=== PATIENT | female | born 1995 | race African-American/Black ===

== ENCOUNTER 2020-09-11 07:56 | Emergency (ER) | payer OTHER, SELFPAY ==
--- NOTE | ~2020-09-11 | XR_ITS ---
EXAMINATION: XR chest 1V portable EXAM DATE: 09/11/2020 11:08 INDICATION: Chest pain. TECHNIQUE: Portable AP frontal chest x-ray was obtained. There is no prior study for comparison. FINDINGS: The lungs are clear. There are no pleural effusions. The cardiomediastinal silhouette is within normal limits. There is no pneumothorax suspected. The bones and soft tissues are unremarkab le. IMPRESSION: Normal chest x-ray exam. Reviewed, dictated and finalized at location B. IMPRESSION: Normal chest x-ray exam.
[2020-09-11 07:52] VITALS: BP 145/100; PULSE 84; RESP 17; TEMP 37; O2SAT 100
[2020-09-11 08:50] VITALS: BP 149/84; PULSE 73; RESP 22; O2SAT 100
[2020-09-11] MEDS: SODIUM CHLORIDE 0.9% IV 1,000 ML 999 ML IV CONT (09:35)
[2020-09-11] MEDS: FAMOTIDINE 20 MG/2 ML VIAL IV PUSH (09:36)
[2020-09-11] MEDS: ONDANSETRON INJ 4 MG/2 ML VIAL IV PUSH (09:39)
[2020-09-11 09:42] VITALS: BP 108/68; PULSE 72; RESP 16; O2SAT 100
--- NOTE | 2020-09-11 09:58 | ECG_ITS ---
Measurements Intervals [place] Rate: 58 P: 36 NV: 143 QRS: 52 QRSD: 74 T: 52 QT: 440 QTc: 433 Interpretive Statements SINUS BRADYCARDIA BORDERLINE T WAVE ABNORMALITY- ANTERIOR LEADS BASELINE ARTIFACT- I, V1-V2 BORDERLINE ECG Electronically Signed On 09-11-2020 10:31:28 CDT by Ilir York D.O.
--- NOTE | 2020-09-11 10:00 | PC.NURSE ---
Pt tearful and restless at this time. Reports burning sensation in head and chest. EDP Gomez notified.
[2020-09-11 10:37] VITALS: BP 114/63; PULSE 56; RESP 14; O2SAT 100
[2020-09-11] MEDS: LORazepam INJ (*CRX) 2 MG/ML VIAL 1 MG IV PUSH (10:59)
[2020-09-11 11:18] LABS: Add Urine Microscopic? YES; Appearance Urine Cloudy (Clear); Bacteria Urine Trace /hpf; Bilirubin Urine Negative (Negative); Blood Urine 1+ (Negative); Color Urine Yellow (Yellow); Glucose Urine UA Negative (Negative); Ketones Urine Negative (Negative); Leukocyte Esterase Ur 1+ LEU/UL (Negative); Nitrate Urine Negative (Negative); Protein Urine Negative (Negative); RBC Urine 0-2 /hpf (0-2); Specific Grav Ur 1.013 (1.001-1.035); Squamous Epithelial Cell Urine Many /hpf (Few)
[2020-09-11 11:29] LABS: Basophils Absolute Auto 0.1 K/mm3 (0.0-0.1); Basophils Percent Auto 1.3 % (0.2-1.2); Eosinophils Absolute Auto 0.1 K/mm3 (0-0.3); Eosinophils Percent Auto 0.8 % (0-4.4); Hematocrit 39.1 % (37.0-47.0); Hemoglobin 12.5 g/dL (12.0-15.0); Immature Granulocyte Absolute 0.02 K/mm3 (0.00-0.031); Immature Granulocyte Percent A 0.3 % (0-0.5); Lymphocytes Absolute Auto 1.74 K/mm3 (0.9-3.2); Lymphocytes Percent Auto 22.3 % (18.3-44.2); Mean Corpuscular Hemoglobin 28.3 pg (26-34); Mean Corpuscular Volume 88.5 fl (80-100); Mean Platelet Volume 9.2 fl (7.4-10.4); Monocytes Absolute Auto 0.6 K/mm3 (0.1-0.6); Monocytes Percent Auto 7.4 % (2.6-8.5); Neutrophils Absolute Auto 5.3 K/mm3 (1.3-6.7); Neutrophils Percent Auto 67.9 % (45.5-73.1); Platelet Count Result 313 k/mm3 (150-375); Red Blood Count 4.42 M/mm3 (4.2-5.4); Red Cell Distribution Width 12.3 % (11.5-14.5); White Blood Count 7.8 K/mm3 (4.5-10.0)
[2020-09-11 11:35] VITALS: BP 122/56; PULSE 57; RESP 18; O2SAT 99
[2020-09-11 11:39] LABS: INR 1.5; Partial Thromboplastin Time 29.8 SECONDS (22.3-36.8); Prothrombin Time 18.4 Seconds (11.1-14.7)
[2020-09-11 11:41] LABS: Anion Gap 5 mmol/L (8-16); Blood Urea Nitrogen 8 mg/dL (7-17); Calcium 8.4 mg/dL (8.4-10.2); Carbon Dioxide 21 mmol/L (22-30); Chloride 113 mmol/L (98-107); Estimated CRCL calculation 148 ml/min; Estimated Glomerular Filt Rate > 60; Glucose 74 mg/dL (65-105); Potassium 4.2 mmol/L (3.4-5.0); Sodium 139 mmol/L (137-145)
[2020-09-11 11:42] LABS: D Dimer 0.31 ug/mL (<0.48)
[2020-09-11 11:51] LABS: Troponin I < 0.012 ng/mL (0.000-0.034)
--- NOTE | 2020-09-11 12:06 | ED.GENADULT ---
HPI - General Adult General Chief complaint: Unspecified Stated complaint: reaction to covid vaccine Time Seen by Provider: 09/11/20 09:01 Source: patient and RN notes reviewed Mode of arrival: ambulatory Limitations: no limitations History of Present Illness HPI narrative: Patient is a 25-year-old female who received her second visor vaccine yesterday and is now having aching pain in the head chest and generalized went to work today and feels weak and nauseous. Patient felt fine prior to the vaccine patient also notes history of anxiety and on arrival appears very anxious Related Data Allergies Allergy/AdvReac Type Severity Reaction Status Date / Time No Known Allergies Allergy Verified 09/11/20 09:33 Review of Systems Review of Systems: All systems reviewed & are unremarkable except as noted in HPI and below PMFSH Past Medical History Medical History (Updated 09/11/20 @ 12:15 by Gallo Patterson PA-C) Anxiety Social History Social History Gender identity (if verbalized by the patient): Female Exam Narrative: Exam Narrative: GENERAL: Well-appearing, obese, and in no acute distress. HEAD: Normocephalic, atraumatic. EYES: PERRLA and EOMI. ENT: Nares clear, no rhinorrhea or epistaxis. Mucous membranes moist. CHEST: Clear to auscultation. No respiratory distress. No wheezes rales or rhonchi HEART: Regular rate and rhythm. No murmur heard. Normal peripheral pulses. ABDOMEN: Soft, nontender, nondistended EXTREMITIES: Normal range of motion. No edema. SKIN: Warm, dry, no rash. NEURO: No focal deficits. Alert and oriented x3. Cranial nerves II through XII grossly intact PSYCH: Patient acutely anxious Course Course Emergency Course: Patient in the room no distress aware of case findings treatment plan and diagnosis was reassured that the symptoms she is experiencing are consistent with vaccine reaction. No high risk changes in the blood work EKG or imaging. Patient is nontoxic-appearing no distress and felt appropriate for outpatient reevaluation ABCs and vital signs intact and stable Vital Signs Vital signs: Vital Signs Temperature 98.6 F 09/11/20 07:52 Pulse Rate 84 09/11/20 07:52 Respiratory Rate 17 09/11/20 07:52 Blood Pressure 145/100 H 09/11/20 07:52 Pulse Oximetry 100 09/11/20 07:52 Temperature 98.6 F 09/11/20 07:52 Pulse Rate 57 L 09/11/20 11:35 Respiratory Rate 18 09/11/20 11:35 Blood Pressure 122/56 L 09/11/20 11:35 Pulse Oximetry 99 09/11/20 11:35 Medical Decision Making MDM Narrative Medical decision making narrative: Patient in the room with likely vaccine reaction no distress no high risk changes in the imaging blood work felt appropriate for outpatient reevaluation Vital Signs Vital Signs: Vital Signs Temperature 98.6 F 09/11/20 07:52 Pulse Rate 84 09/11/20 07:52 Respiratory Rate 17 09/11/20 07:52 Blood Pressure 145/100 H 09/11/20 07:52 Pulse Oximetry 100 09/11/20 07:52 Temperature 98.6 F 09/11/20 07:52 Pulse Rate 57 L 09/11/20 11:35 Respiratory Rate 18 09/11/20 11:35 Blood Pressure 122/56 L 09/11/20 11:35 Pulse Oximetry 99 09/11/20 11:35 Lab Data Result diagrams: 09/11/20 11:24 09/11/20 11:24 Labs: Lab Results 09/11/20 09/11/20 09/11/20 Range/Units 11:01 11:24 11:24 WBC 7.8 (4.5-10.0) K/mm3 RBC 4.42 (4.2-5.4) M/mm3 Hgb 12.5 (12.0-15.0) g/dL Hct 39.1 (37.0-47.0) % MCV 88.5 (80-100) fl MCH 28.3 (26-34) pg MCHC 32.0 (32-36) g/dl RDW 12.3 (11.5-14.5) % Plt Count 313 (150-375) k/mm3 MPV 9.2 (7.4-10.4) fl Immature Gran % (Auto) 0.3 (0-0.5) % Neut % (Auto) 67.9 (45.5-73.1) % Lymph % (Auto) 22.3 (18.3-44.2) % Reynolds % (Auto) 7.4 (2.6-8.5) % Eos % (Auto) 0.8 (0-4.4) % Baso % (Auto) 1.3 H (0.2-1.2) % Lymph # (Auto) 1.74 (0.9-3.2) K/mm3 Reynolds #
[2020-09-11 12:33] VITALS: BP 107/57; PULSE 50; RESP 15; O2SAT 100
== END 2020-09-11 12:34 | disposition home or self-care (01) ==
PROVIDERS: Emergency Medicine Emergency Medical Services; Emergency Provider Emergency Medicine; PCP Nurse Practitioner Family
DX: R53.1 Weakness (principal); R51.9 Headache, unspecified; R07.9 Chest pain, unspecified; T50.B95A Adverse effect of other viral vaccines, initial encounter; R94.31 Abnormal electrocardiogram [ECG] [EKG]; R00.1 Bradycardia, unspecified
CPT/HCPCS: 36415; 71045; 80048; 81001; 81025; 84484; 85025; 85380; 85610; 85730; 93005; 96361; 96374; 96375; 99284; J0131; J2060; J2405; J7030